=== PATIENT | male | born 1955 | race Caucasian/White ===

== ENCOUNTER → 2017-01-02 | Outpatient (CLI) | payer BC ==
[2017-01-05 21:08] LABS: Hazelnut IgG < 2.0 mcg/mL (< 2.0)
[2017-01-06 06:45] LABS: Almond IgE <0.35 kU/L (<0.35); Almond IgE Class CLASS 0; Pork IgE Class CLASS 0
[2017-01-06 06:46] LABS: Banana IgE Class CLASS 0; Beef IgE <0.35 kU/L (<0.35); Beef IgE Class CLASS 0; Chicken IgE Class CLASS 0; Egg Yolk IgE Class CLASS 0; Kiwi IgE <0.35 kU/L (<0.35); Kiwi IgE Class CLASS 0; Yeast Bakers/Brew IgE <0.35 kU/L (<0.35); Yeast Bakers/Brew IgE Class CLASS 0
[2017-01-06 06:47] LABS: Avocado Class CLASS 0; Coffee IgE <0.35 kU/L (<0.35); Coffee IgE Class CLASS 0; Cow's Milk IgE Class CLASS 0; Egg White IgE <0.35 kU/L (<0.35); Latex IgE Class CLASS 0; Peanut IgE <0.35 kU/L (<0.35); Potato IgE <0.35 kU/L (<0.35); Potato IgE Class CLASS 0; Soybean IgE <0.35 kU/L (<0.35)
[2017-01-06 06:48] LABS: Tea IgE <0.35 kU/L (<0.35); Tea IgE Class CLASS 0
== END | disposition home or self-care (01) ==
LOC: LABWHC1 16:33
PROVIDERS: ATTEND Otolaryngology
DX: L50.0 Allergic urticaria (principal)
CPT/HCPCS: 36415; 86001; 86003

== ENCOUNTER → 2021-09-12 | Outpatient (CLI) | payer MEDICARE ==
--- NOTE | 2021-09-12 13:26 | US ---
EXAMINATION TYPE: US abdomen complete DATE OF EXAM: 09/12/2021 COMPARISON: NONE CLINICAL HISTORY: 66-year-old male R10.11 RIGHT UPPER QUADRANT PAIN. Right flank pain. TECHNIQUE: Multiple sonographic images of the abdomen are obtained. FINDINGS: EXAM MEASUREMENTS: Liver Length: 12.2 cm Gallbladder Wall: 0.13 cm CBD: 0.54 cm Spleen: 9.8 cm Right Kidney: 11.4 x 6.8 x 4.7 cm Left Kidney: 12.0 x 5.9 x 4.7 cm Grid Caster notes: Limited due to gas. Pancreas: Only a portion of the pancreatic head and neck is seen. Body and tail obscured by bowel ga s shadowing. Liver: Echogenic and attenuating. There is a hypoechoic area seen adjacent to the arnold hepatus measu ring 2.1 x 2.0 x 1.0 cm, most suggestive of fatty sparing Gallbladder: A couple gallbladder wall polyps are suggested measuring up to 4 mm. No abnormal disten tion, wall thickening, or shadowing calculi. Evidence for sonographic Powell's sign: No CBD: Portions seen appear wnl Spleen: Appears wnl Right Kidney: There appears to be a 1.8 cm parapelvic cyst. Additional 5 mm echogenic lesion central ly within the kidney. No hydronephrosis. Left Kidney: A couple parapelvic cysts measuring up to 1.3 x 1.0 x 1.8 cm. No kamla hydronephrosis. Upper IVC: Appears wnl Abd Aorta: Proximal portion is ectatic at 2.5 cm. IMPRESSION: 1. At least moderate hepatic steatosis. Correlate with LFTs, lipid profile, and patient risk factors. 2. Suggestion of a couple small gallbladder wall polyps measuring up to 4 mm. Six-month follow-up gal ladder ultrasound to reassess. 3. A couple parapelvic cysts in the kidneys measuring up to 1.8 cm. Possible 5 mm nonobstructive righ t renal calculus. 4. Borderline ectatic upper abdominal aorta 2.5 cm.
== END | disposition home or self-care (01) ==
LOC: RADUSWWP 07:32
PROVIDERS: ATTEND Internal Medicine
DX: K76.0 Fatty (change of) liver, not elsewhere classified (principal); N28.1 Cyst of kidney, acquired
CPT/HCPCS: 76700

== ENCOUNTER → 2022-01-31 | Outpatient (CLI) | payer MEDICARE ==
--- NOTE | 2022-02-01 16:00 | CT ---
EXAMINATION TYPE: CT abdomen pelvis wo con CT DLP: 1089 mGycm, Automated exposure control for dose reduction was used. DATE OF EXAM: 01/31/2022 6:16 PM COMPARISON: Ultrasound 09/04/2021 CLINICAL INDICATION:Male, 66 years old with history of N20.0 KIDNEY STONE; Right side flank pain x9mo TECHNIQUE: Axial CT of the abdomen and pelvis. Sagittal and coronal reformats were created on a [employer] workstation. Contrast used: None Oral contrast used: without Oral Contrast FINDINGS: LOWER CHEST: Unremarkable ABDOMEN LIVER: Unremarkable GALLBLADDER AND BILE DUCTS: Polyp seen on prior ultrasound is not visualized. PANCREAS: Unremarkable. SPLEEN: Unremarkable. ADRENAL GLANDS: Unremarkable. KIDNEYS AND URETERS: No evidence of hydronephrosis or renal calculus. Parapelvic renal cysts PELVIS BLADDER: Unremarkable REPRODUCTIVE: Prostate is enlarged in size measuring 5.9 cm in transverse dimension. ABDOMEN & PELVIS STOMACH AND BOWEL: No evidence of bowel obstruction. Portion of the small bowel lies between the live r and the abdominal wall on the right. Appendix is normal PERITONEUM: No evidence of pneumoperitoneum or free fluid. VASCULATURE: Mild atherosclerotic calcifications are present throughout the abdominal aorta and its b ranches. No evidence of aortic aneurysm. MUSCULOSKELETAL: No acute osseous abnormalities, mild degeneration changes of the spine. LYMPH NODES: No gross evidence for lymphadenopathy. SOFT TISSUE/ABDOMINAL WALL: Unremarkable IMPRESSION: 1. No evidence for obstructive uropathy or evidence for urolithiasis. Echogenic focus seen on prior u ltrasound not definitively visualized. 2. Prostatomegaly correlate serum PSA. 3. Small bowel loops lying between the liver and the abdominal wall with small bowel feces suggesting fecal stasis.
== END | disposition home or self-care (01) ==
LOC: RADCTMAIN 16:46
PROVIDERS: ATTEND Urology
DX: N40.0 Benign prostatic hyperplasia without lower urinary tract symptoms (principal); R97.21 Rising PSA following treatment for malignant neoplasm of prostate; Z87.442 Personal history of urinary calculi
CPT/HCPCS: 74176